=== PATIENT | male | born 1950 | race Caucasian/White ===

== ENCOUNTER 2018-12-15 07:08 | Inpatient (IN) | payer OTHER ==
[2018-12-15] MEDS ORDERED: THROMBIN 5000 UNIT (RECOTHROM) VIAL (09:51)
[2018-12-15] MEDS ORDERED: GELATIN SIZE 100 SPONGE (09:51)
[2018-12-15] MEDS ORDERED: SUCCINYLCHOLINE CHLORIDE 100 MG/5 ML SYG IV (09:55)
[2018-12-15] MEDS ORDERED: GLYCOPYRROLATE 0.4 MG INJ ×3 (09:55→10:33)
[2018-12-15] MEDS ORDERED: PROPOFOL 20 ML (09:55)
[2018-12-15] MEDS ORDERED: ROCURONIUM 50 MG INJ ×2 (09:55→12:14)
[2018-12-15] MEDS ORDERED: LIDOCAINE 2% (SDV) 5 ML INJ (09:55)
[2018-12-15] MEDS ORDERED: MEPERIDINE 100 MG INJ (09:55)
[2018-12-15] MEDS ORDERED: NEOSTIGMINE 3 MG/3 ML SYRINGE ×2 (09:55→10:33)
[2018-12-15] MEDS: CEFAZOLIN 2 GM/50 ML (PMX) 50 ML IVPB (10:00)
[2018-12-15] MEDS: POLYMYXIN/BACITRACIN 1L IRRIG (10:46)
[2018-12-15] MEDS: BUPIVACAINE 0.25% (MPF) 30 ML INJ (10:46)
[2018-12-15] MEDS ORDERED: EPHEDrine 25 MG/5 ML SYG (10:58)
[2018-12-15] MEDS ORDERED: ONDANSETRON 4 MG INJ (10:58)
[2018-12-15] MEDS ORDERED: hydrALAzine 20 MG INJ IV (11:30)
[2018-12-15] MEDS ORDERED: LABETALOL HCL 20MG INJ IV (11:30)
[2018-12-15] MEDS ORDERED: METOCLOPRAMIDE 10 MG INJ IV (11:30)
[2018-12-15] MEDS ORDERED: FENTAnyl 50 MCG/ML VIAL IV ×3 (11:30)
[2018-12-15] MEDS ORDERED: MIDAZOLAM 1 MG/ML 2 ML INJ IV (11:30)
[2018-12-15] MEDS ORDERED: DIPHENHYDRAMINE 50 MG INJ IV (11:30)
[2018-12-15] MEDS ORDERED: HYDROmorphONE 1 MG/5 ML IV SYRINGE IV (11:30)
[2018-12-15] MEDS ORDERED: EPHEDrine 25 MG/5 ML SYG IV (11:30)
[2018-12-15] MEDS ORDERED: PROCHLORPERAZINE 10 MG TAB PO (13:00)
[2018-12-15] MEDS ORDERED: DIPHENHYDRAMINE 50 MG CAP PO (13:00)
[2018-12-15] MEDS ORDERED: ONDANSETRON 4 MG INJ IV (13:00)
[2018-12-15] MEDS ORDERED: DIAZEPAM 10 MG/2 ML SYG IM (13:00)
[2018-12-15] MEDS ORDERED: BETHANECHOL 25 MG TAB PO (13:00)
[2018-12-15] MEDS ORDERED: ACETAMINOPHEN 325 MG TAB PO (13:00)
[2018-12-15] MEDS ORDERED: ZOLPIDEM 5 MG TAB PO (13:00)
[2018-12-15] MEDS ORDERED: TRIMETHOBENZAMIDE 100 MG/ML VIAL IM (13:00)
[2018-12-15] MEDS ORDERED: HYDROCODONE/APAP (5/325) TAB PO (13:00)
[2018-12-15] MEDS ORDERED: NALOXONE (0.4 MG/ML) INJ IV (13:00)
[2018-12-15] MEDS: ONDANSETRON 4 MG INJ IV (13:09)
[2018-12-15] MEDS: MEPERIDINE 25 MG INJ IV (13:09)
[2018-12-15] MEDS: HYDROmorphONE 1 MG/5 ML IV SYRINGE IV ×2 (13:21→13:56)
[2018-12-15] MEDS: HYDROmorphONE 0.2 MG/ML PCA IV ×2 (13:44→23:06)
[2018-12-15] MEDS ORDERED: DEXTROSE 50% 50 ML SYRINGE IV ×2 (16:00)
[2018-12-15] MEDS ORDERED: GLUCOSE GEL 15 GRAM TUBE PO ×2 (16:00)
[2018-12-15] MEDS ORDERED: GLUCAGON 1 MG INJ IM (16:00)
[2018-12-15] MEDS ORDERED: GLUCOSE GEL 15 GRAM TUBE BUCCAL (16:00)
[2018-12-15] MEDS: DEXTROSE 5%-0.45% NACL 1,000 ML IV (16:03)
[2018-12-15] MEDS ORDERED: NON-FORMULARY/PATIENT OWN MED (Simvastatin* (Zocor*) 40 MG) PO (21:00)
[2018-12-15] MEDS: ATORVASTATIN 20 MG TAB PO (21:09)
[2018-12-15] MEDS: RANITIDINE 150 MG TAB PO (21:10)
[2018-12-16] MEDS: DEXTROSE 5%-0.45% NACL 1,000 ML IV ×2 (05:09→15:00)
[2018-12-16] MEDS: PANTOPRAZOLE (EC) 40 MG TAB PO (05:09)
[2018-12-16 06:20] LABS: HEMATOCRIT 36.5 % (42.0-52.0)
[2018-12-16 07:06] LABS: ANION GAP 7 (5-13); BLOOD UREA NITROGEN 20 mg/dl (7-20); CALCIUM 8.4 mg/dl (8.4-10.2); CARBON DIOXIDE 31 mmol/L (21-31); CHLORIDE 96 mmol/L (97-110); CREATININE 1.11 mg/dl (0.61-1.24); Estimated GFR > 60 mL/min (>60); GLUCOSE 127 mg/dl (70-220); POTASSIUM 3.3 mmol/L (3.5-5.1); SODIUM 134 mmol/L (135-144)
[2018-12-16] MEDS: DOCUSATE SODIUM 100 MG CAP PO ×2 (08:44→22:05)
[2018-12-16] MEDS: BETHANECHOL 25 MG TAB PO (08:45)
[2018-12-16] MEDS: FERROUS SULFATE (EC) 325 MG TAB PO ×3 (08:45→22:05)
[2018-12-16] MEDS: metFORMIN (XR) 500 MG TAB PO (08:45)
[2018-12-16] MEDS: BUPROPION (XL) 150 MG TAB PO (08:45)
[2018-12-16] MEDS: RANITIDINE 150 MG TAB PO ×2 (08:45→22:05)
[2018-12-16] MEDS: ASCORBIC ACID 500 MG TAB PO ×2 (08:45→22:05)
[2018-12-16] MEDS: ATENOLOL 25 MG TAB PO (08:46)
[2018-12-16] MEDS: HYDROCHLOROTHIAZIDE 25 MG TAB PO (08:46)
[2018-12-16] MEDS: LOSARTAN 50 MG TAB PO (08:47)
[2018-12-16] MEDS ORDERED: NON-FORMULARY/PATIENT OWN MED (Omeprazole* 20 MG) PO (09:00)
[2018-12-16] MEDS ORDERED: NON-FORMULARY/PATIENT OWN MED (Losartan-Hydrochlorothiazide (Losartan-HCTZ) 1 TAB) PO (09:00)
[2018-12-16] MEDS: HYDROCODONE/APAP (5/325) TAB PO ×4 (09:05→22:04)
[2018-12-16 09:52] LABS: ADD UMIC YES; UR ASCORBIC ACID NEGATIVE (NEGATIVE); UR BACTERIA FEW /HPF (NONE SEEN); UR BILIRUBIN (Dip) NEGATIVE (NEGATIVE); UR BLOOD (Dip) 1+ mg/dL (NEGATIVE); UR CLARITY CLEAR (CLEAR); UR COLOR YELLOW (YELLOW); UR GLUCOSE (Dip) NEGATIVE (NEGATIVE); UR KETONES (Dip) NEGATIVE (NEGATIVE); UR LEUKOCYTE ESTERASE (Dip) NEGATIVE Leu/ul (NEGATIVE); UR MUCUS FEW /HPF (NONE SEEN); UR NITRITE (Dip) NEGATIVE (NEGATIVE); UR RBC 8 /HPF (0-5); UR SPECIFIC GRAVITY (Dip) 1.013 (1.003-1.030); UR TOTAL PROTEIN (Dip) NEGATIVE (NEGATIVE); UR UROBILINOGEN (Dip) NEGATIVE (NEGATIVE); UR WBC 3 /HPF (0-5)
[2018-12-16] MEDS: DIAZEPAM 5 MG TAB PO ×4 (10:09→23:22)
[2018-12-16] MEDS ORDERED: POTASSIUM CHLORIDE (SR) 20 MEQ TAB PO (11:30)
[2018-12-16] MEDS: POTASSIUM CHLORIDE (SR) 20 MEQ TAB PO (12:26)
[2018-12-16] MEDS: INSULIN ASPART [NOVOLOG] 3 ML PEN SC ×2 (17:55→21:00)
[2018-12-16] MEDS: CEPASTAT LOZENGE MT (22:04)
[2018-12-16] MEDS: ATORVASTATIN 20 MG TAB PO (22:05)
[2018-12-16] MEDS: NACL 0.9% 3 ML SYG IV (22:07)
[2018-12-17] MEDS: DEXTROSE 5%-0.45% NACL 1,000 ML IV ×2 (01:00→11:00)
[2018-12-17] MEDS: HYDROCODONE/APAP (5/325) TAB PO ×4 (02:03→15:12)
[2018-12-17] MEDS: DIAZEPAM 5 MG TAB PO ×2 (03:25→08:46)
[2018-12-17 05:56] LABS: MAGNESIUM 1.8 mg/dl (1.7-2.5)
[2018-12-17 06:02] LABS: ANION GAP 7 (5-13); BLOOD UREA NITROGEN 19 mg/dl (7-20); CALCIUM 8.6 mg/dl (8.4-10.2); CARBON DIOXIDE 30 mmol/L (21-31); CHLORIDE 98 mmol/L (97-110); Estimated GFR > 60 mL/min (>60); GLUCOSE 116 mg/dl (70-220); POTASSIUM 3.4 mmol/L (3.5-5.1); SODIUM 135 mmol/L (135-144)
[2018-12-17] MEDS: PANTOPRAZOLE (EC) 40 MG TAB PO (06:07)
[2018-12-17] MEDS: AL HYDROX/MG HYDROX/SIMETH 30 ML CUP PO (07:56)
[2018-12-17] MEDS: ASCORBIC ACID 500 MG TAB PO (08:26)
[2018-12-17] MEDS: FERROUS SULFATE (EC) 325 MG TAB PO ×2 (08:26→13:52)
[2018-12-17] MEDS: POTASSIUM CHLORIDE (SR) 20 MEQ TAB PO ×2 (08:26→13:51)
[2018-12-17] MEDS: BUPROPION (XL) 150 MG TAB PO (08:27)
[2018-12-17] MEDS: RANITIDINE 150 MG TAB PO (08:27)
[2018-12-17] MEDS: DOCUSATE SODIUM 100 MG CAP PO (08:27)
[2018-12-17] MEDS: metFORMIN (XR) 500 MG TAB PO (08:27)
[2018-12-17] MEDS: ATENOLOL 25 MG TAB PO (08:28)
[2018-12-17] MEDS: HYDROCHLOROTHIAZIDE 25 MG TAB PO (08:28)
[2018-12-17] MEDS: LOSARTAN 50 MG TAB PO (08:29)
[2018-12-17] MEDS: INSULIN ASPART [NOVOLOG] 3 ML PEN SC ×2 (08:34→11:40)
== END 2018-12-17 15:47 | disposition home or self-care (01) | DRG 520 ==
LOC: SDS 07:08 → REC 12:53 → MS1 16:14
PROVIDERS: Orthopaedic Surgery
PROC: 01NR0ZZ Release Sacral Nerve, Open Approach (ICD-10-PCS; principal; 2018-12-15 10:03)
PROC: 00BT0ZX Excision of Spinal Meninges, Open Approach, Diagnostic (ICD-10-PCS; 2018-12-15 10:03)
PROC: 4A11X4G Monitoring of Peripheral Nervous Electrical Activity, Intraoperative, External Approach (ICD-10-PCS; 2018-12-15 10:03)
DX: M48.061 Spinal stenosis, lumbar region without neurogenic claudication (principal); E88.2 Lipomatosis, not elsewhere classified; E11.9 Type 2 diabetes mellitus without complications; I10 Essential (primary) hypertension; E78.5 Hyperlipidemia, unspecified; F33.41 Major depressive disorder, recurrent, in partial remission; K21.9 Gastro-esophageal reflux disease without esophagitis
CPT/HCPCS: 72020; 80048; 81001; 82962; 83735; 85014; 85018; 86850; 86900; 86901; 86920; 87086; 88304; 88311; 97116; 97161; 97530